=== PATIENT | female | born 1975 | race Caucasian/White ===

== ENCOUNTER 2017-11-02 15:15 | Emergency (ER) | payer MEDICAID ==
[2017-11-02 16:37] LABS: URINE COLOR YELLOW (YELLOW)
[2017-11-02 16:38] LABS: URINE BILIRUBIN NEGATIVE (NEGATIVE); URINE BLOOD NEGATIVE (NEGATIVE); URINE GLUCOSE (UA) NEGATIVE (Normal); URINE KETONE NEGATIVE (NEGATIVE); URINE LEUKOCYTE ESTERASE NEGATIVE Leu/uL (Negative); URINE PROTEIN NEGATIVE (NEGATIVE); URINE UROBILINOGEN 0.2 mg/dL (0.2-1.0)
--- NOTE | 2017-11-02 16:53 | OBDCSUM ---
Datetime: 11/02/2017 16:41 Discharged to, Provider: Home Follow up at, Provider: Dale levin- Disch Instr Activity: Normal activity Disch Instr Diet: Regular Discharge Instructions, Provider: Routine instructions given Discharge Time: 11/02/2017 14:45 Follow up in weeks, Provider: 1 week Disch Referrals: None Disch Activity Restrictions: No sexual activity; Nothing in vagina - Big Arm, tampons, douche Discharge Comment, Provider: Tylenol prn pain, Use belly band as needed Patient given contact information for [facility] in [place], No intercourse Discharge Diagnosis Prov Other: Vaginal bleeding and back pain
--- NOTE | 2017-11-02 16:54 | OBHP ---
Datetime: 11/02/2017 16:05 IP Adm Impression: , intrauterine IP Admit Plan: Discharge home Admit Comment, IP Provider: Patient is 42 year old at 21w6d DAMEON 03/09/18 by LMP presents to L +D for vaginal bleeding that started last night. Noticed a small amount of bright red blood in her un derwear. Not currently having bleeding. Also complaining of back pain that started today. Rates the p ain 08/07. Has not taken anything for the pain. States that she was recently diagnosed with a UTI and started antibiotics (not aware which kind). Endorses +FM, denies CTX, LOF. 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 Recommending Tylenol prn pain, use b sujata band as needed. No intercourse. Advised patient needs to follow up for care. Contact in [facility] given to the patient. Patient verbalizes understanding. Discussed w ith Dr Angulo. Abena Chin DO PGY-1 dr angulo agrees FHR - Baseline A Provider: 140 Contraction Comments Provider: none Comments, ACOG Physical Exam: VSS Gen: AAOx3 CV: RRR Lungs: CTA B/L Abd: Soft, gravid SSE: Patient unable to tolerate speculum exam SVE: No bleeding appreciated, cervix is closed EGA AdmitDate IP: 21.6 IP Chief Complaint: Vaginal bleeding NICHD Variability Prov Fetus A: Moderate 6-25bpm NICHD Decel Fetus A IP Provider: None Dilatation, Provider: closed
[2017-11-02 21:08] VITALS: BP 108/71; PULSE 85
== END 2017-11-02 16:55 | disposition home or self-care (01) ==
LOC: C.EROB 15:15
DX: O46.92 Antepartum hemorrhage, unspecified, second trimester (principal); O26.892 Other specified pregnancy related conditions, second trimester; M54.9 Dorsalgia, unspecified; Z3A.21 21 weeks gestation of pregnancy

== ENCOUNTER 2017-12-29 10:09 | Emergency (ER) | payer MEDICAID, OTHER ==
[2017-12-29 10:38] VITALS: BMI 29.2
[2017-12-29] MEDS ORDERED: Betamethasone Soluspan 30 mg/5mL Inj Susp IM ONE (11:00)
[2017-12-29] MEDS ORDERED: Magnesium Sulfate 6 GM in Dextrose 5% In Water 250 ML IVPB ONE (11:00)
[2017-12-29] MEDS ORDERED: AMPicillin 2 GM in Sodium Chloride 100 ML IVPB SCH (11:00)
[2017-12-29] MEDS ORDERED: Magnesium Sulfate 1 gm in D5W 1 GM/100 ML BAG IVPB SCH (11:15)
--- NOTE | 2017-12-29 11:44 | OBHP ---
Datetime: 12/29/2017 11:12 IP Adm Impression: , intrauterine ; No Active Labor; Ruptured Membranes IP Admit Plan Other: Transfer to [facility] Admit Comment, IP Provider: 42 y.o. , LMP 06/02/17, DAMEON 03/09/18, EGA 30 weeks, c/o LAP onset late evening; was able to sleep. Upon awakening at approx 0700 hours, noticed "lots of fluid a nd vaginal bleeding"; and worsening LAP, pain scale 9/10. Reports no movement at that time of awakening. No care. 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 Denies STIs PMH: GERD PSH: denied Meds: none; not takiing vitamins NKDA Soc Hc: denies tobacco illicit drug or EtOH use. x 7 years Fam Hx: Mother age 53 - breast cancer. Father alive and well @ 65- no med issues P.E.: as above. Mildy obese, in NAD. Anxious and crying. awake, alert, oriented tot itme, person and place. Accompanied by her Assessment: 42 y.o. P0010, 30wk by LMP, PPROM, no care. Category 1 tracing. Patient coun seled as follows: 1) celestone for lung profile; 2) magnesium sulphate for neuroprotection 3) a ntibiotics. Also D/W transfer to Level III/NICU. Patient and expressed an understanding and a gree. Questions were answered. Dr. Jones at [facility] [place] accepted the transfer. Patient is clinically stable. Plan: 1) Transfer to [facility] 2) Celestone 12 mg IM x 1 2) Ampcillin 2 grams x 1 3) magnesioum load at 4 grams Cervical exam: 1140 hours /-3 Pelvic Type - PN: Adequate Extremities - PN: Normal Abdomen - PN: Normal Back - PN: Normal Breast - PN: Not Done Lungs - PN: Normal Heart - PN: Normal Thyroid - PN: Not Done Neurologic - PN: Normal HEENT - PN: Normal General - PN: Normal Presentation-Admit: Vertex FHR - Baseline A Provider: 150 Amniotic Fluid Color, Provider: Blood-tinged Membranes, Provider: Ruptured Contraction Comments Provider: none detected Comments, ACOG Physical Exam: Abdomen: gravid . Soft. Non tender in all quadrants Perienum: dry Spec exam: (+) pooling; (+) blood-tinged mucoid discharge Bedside surveiilance: CINDY 3.65cm; Cephalic; (+) FM; (+) FBM; posterior placenta Gestation - Est Wks by US: 29w 6d Pool Provider: Positive EGA AdmitDate IP: 29.3 Vital Signs Provider: Reviewed; Within Normal Limits IP Chief Complaint: Uterine contractions; Suspected ruptured membranes NICHD Variability Prov Fetus A: Moderate 6-25bpm NICHD Accel Fetus A IP Provider: 15X15 FHR Category Provider Fetus A: Category I NICHD Decel Fetus A IP Provider: None Dilatation, Provider: 1 Effacement, Provider: 80 Station, Provider: -3 Genitourinary Exam: Normal DTRs - PN: Not Done
--- NOTE | 2017-12-29 11:53 | US ---
OB , limited Indication: PPROM, 29wk, AMA Comparison: None available. Technique: Real-time ultrasound was performed through the pelvis. Findings: There is a single living fetus in cephalic presentation. Posterior placenta. The placenta is not previa. Amniotic fluid index 9.7 cm, low normal (normal range 8.2-25.8). There are no adnexal masses or cysts evident. The cervix was not visualized. Measurements and calculations: Fetus has a composite sonographic age of 28 weeks 1 day. This calculation is based on the biparietal diameter, head circumference, abdominal circumference, and femur length. Estimated heart rate 144.4 beats per min. Estimated weight 1369 g 205.3 g The study was performed for emergent evaluation and the whole anatomic survey of the fetus was not performed. This should be performed on an outpatient elective basis as clinically warranted. Impression: Single living fetus with a composite sonographic age of 28 weeks 1 day. Estimated heart rate 144.4 beats per min. Amniotic fluid index 9.7 cm, low normal (normal range 8.2-25.8). Please note that the patient was experiencing contractions during the examination.
[2017-12-29] MEDS ORDERED: Magnesium Sulfate 4 gm/100 ml 4 GM/100 ML BAG IVPB ONE (12:02)
[2017-12-29 18:05] VITALS: BP 118/67; PULSE 95
== END 2017-12-29 11:45 | disposition short-term general hospital (02) ==
LOC: C.EROB 10:09
DX: O26.893 Other specified pregnancy related conditions, third trimester (principal); R10.30 Lower abdominal pain, unspecified; Z3A.30 30 weeks gestation of pregnancy
CPT/HCPCS: 76815; 96365; 96367; 96372; 99284; J0290; J0702; J7050